=== PATIENT | female | born 1950 | race Hispanic/Latino ===

== ENCOUNTER 2016-12-20 21:52 | Emergency (ER) | payer OTHER, BC ==
[2016-12-20 21:52] VITALS: BMI 32.9
--- NOTE | 2016-12-20 22:11 | ED PDOC ---
Arrival/HPI - General Time Seen by Provider: 12/20/16 21:55 Historian: Patient - History of Present Illness Narrative History of Present Illness (Text): 12/20/16 22:04 66 yo female with h/o CAD (on effient) presents to the ED c/o left nare bleeding that started today. She had some bleeding earlier today and it resolved. Then again just prior to arrival. She tried ice packing and pressure to nose without relief of bleed. She has not changed her dosage of effient or any other medication. She denies headache, visual complaints, weakness, numbness , trauma or any URI symptoms. No history of blood disorders. No h/o nose bleeds. PMD: Dr. Young Past Medical History - Provider Review Nursing Documentation Reviewed: Yes - Psychiatric Hx Substance Use: No - Surgical History Hx Cardiac Catheterization: Yes Hx Coronary Stent: Yes (x2) Family/Social History - Physician Review Nursing Documentation Reviewed: Yes Family/Social History: No Known Family HX Smoking Status: no Hx Alcohol Use: No Hx Substance Use: No Allergies/Home Meds Allergies/Adverse Reactions: Allergies No Known Allergies Allergy (Verified 12/21/16 02:50) Home Medications: Home Meds Medication Instructions Recorded Confirmed Metoprolol Succinate 25 mg PO DAILY 04/20/14 12/21/16 Aspirin [Ecotrin] 81 mg PO DAILY 12/21/16 12/21/16 Cetirizine HCl [Zyrtec Allergy] 10 mg PO DAILY 12/21/16 12/21/16 Prasugrel [Effient] 10 mg PO DAILY 12/21/16 12/21/16 Review of Systems - Review of Systems Constitutional: Normal Eyes: Normal ENT: Epistaxis Respiratory: Normal Cardiovascular: Normal Gastrointestinal: Normal Genitourinary Female: Normal Musculoskeletal: Normal Skin: Normal Neurological: Normal Endocrine: Normal Hemo/Lymphatic: Normal Psychiatric: Normal Physical Exam Vital Signs Reviewed: Yes Vital Signs Temp Pulse Resp BP Pulse Ox 12/21/16 00:42 82 16 98 12/21/16 00:41 98.3 F 99 H 18 132/82 99 12/20/16 21:57 98.1 F 105 H 18 172/98 H 99 Temperature: Afebrile Blood Pressure: Normal Pulse: Tachycardic Respiratory Rate: Normal Appearance: Positive for: Well-Appearing, Non-Toxic, Comfortable Pain Distress: None Mental Status: Positive for: Alert and Oriented X 3 - Systems Exam Head: Present: Atraumatic, Normocephalic Pupils: Present: PERRL Extroacular Muscles: Present: EOMI Conjunctiva: Present: Normal Mouth: Present: Moist Mucous Membranes Pharnyx: Present: Normal. No: ERYTHEMA, EXUDATE Nose (Internal): Present: Epistaxis. No: Septal Hematoma Cardiovascular: Present: Tachycardic Neurological: Present: GCS=15, CN II-XII Intact, Speech Normal, Motor Func Grossly Intact, Normal Sensory Function Skin: Present: Warm, Dry, Normal Color. No: Rashes Psychiatric: Present: Alert, Oriented x 3, Normal Insight, Normal Concentration Medical Decision Making ED Course and Treatment: 12/20/16 22:17 66 yo female with nose bleed -- Pressure was applied with no resolution of bleeding. -- Left anterior/posterior 7.5 rhino rocket applied to left nare and bleeding controlled. 12/20/16 23:23 HR improved to 83. Patient does not feel lightheaded or dizzy. Bleeding has been controlled. Case was discussed with Dr. Brown who is covering ENT services and he can see her in the office tomorrow. He agrees with care and plan. He recommends nasal precautions and augmentin. 12/21/16 23:30 Patients started to have bleeding from right nare despite left nare packing. I placed a 7.5 rhino rocket to right nare without complications. Patient was monitored and the bleeding resolved. Patient does not feel lightheaded or dizzy. Plan is still continue plan for discharge with ENT follow up. - Medication Orders Current Medication Orders: Discontinued Medications Acetaminophen (Tylenol 325mg Tab) 650 mg PO STAT STA Stop: 12/20/16 22:21 Last Admin: 12/21/16 00:41 Dose: Not Given Non-Admin Reason: Patient Refused Amoxicillin/Clavulanate Potassium (Augmentin 875 Mg-125 Mg Tab) 1 tab PO STAT STA PRN Reason: Protocol Stop: 12/20/16 23:19 Last Admin: 12/21/16 00:41 Dose: 1 TAB Disposition/Present on Arrival - Present on Arrival Any Indicators Present on Arrival: No History of DVT/PE: No History of Uncontrolled Diabetes: No Urinary Catheter: No History Surgical Site Infection Following: None - Disposition Have Diagnosis and Disposition been Completed?: Yes Diagnosis: Epistaxis Disposition: HOME/ ROUTINE Disposition Time: 23:30 Patient Plan: Discharge Condition: IMPROVED Discharge Instructions (ExitCare): Nosebleed (ED) Additional Instructions: Ms Kebede thank you for letting us take care of you today. Your provider was Dr. Randolph. You were treated for Epistaxis. The emergency medical care you received today was directed at your acute symptoms. If you were prescribed any medication, please fill it and take as directed. It may take several days for your symptoms to resolve. Return to the Emergency Department if your symptoms worsen, do not improve, or if you have any other problems. Please contact your doctor or call one of the physicians/clinics you have been referred to that are listed on the Patient Visit Information form that is included in your discharge packet. Bring any paperwork you were given at discharge with you along with any medications you are taking to your follow up visit. Our treatment cannot replace ongoing medical care by a primary care provider (PCP) outside of the emergency department. Thank you for allowing the [facility] team to be part of your care today. If you had an X-Ray or CT scan: A Radiologist will review the ED reading if any change in treatment is needed we will contact you. If you had a blood, urine, or wound culture: It will take several days for the results, if any change in treatment is needed we will contact you. If you had an STI test: It will take 48 hours for the results. Please call after 1 week if you have not heard back. Referrals: Willem Brown, [[facility]] - Follow up with primary Forms: WORK NOTE
[2016-12-20] MEDS ORDERED: Amoxicillin-Clav 875-125 mg Tab PO STA (23:18)
[2016-12-21 00:42] VITALS: BP 132/82; PULSE 82; RESP 16; TEMP 98.3; O2SAT 98
== END 2016-12-21 00:42 | disposition home or self-care (01) ==
LOC: ED 21:52
DX: R04.0 Epistaxis (principal); I25.10 Atherosclerotic heart disease of native coronary artery without angina pectoris

== ENCOUNTER 2016-12-21 02:47 | Emergency (ER) | payer OTHER, BC ==
[2016-12-21 02:47] VITALS: BMI 32.9
[2016-12-21 02:57] VITALS: RESP 18
--- NOTE | 2016-12-21 03:19 | ED PDOC ---
Arrival/HPI - General Chief Complaint: ENT Problem Time Seen by Provider: 12/21/16 03:06 Historian: Patient - History of Present Illness Narrative History of Present Illness (Text): 12/21/16 03:20 Nat Kebede is a 66 year old female, with a history of CAD on effient, presents to the emergency department complaining for evaluation of epistaxis. Patient presented to emergency department earlier yesterday night and was discharged home after bleeding was stopped with bilateral nares packing. States that bleeding started again after they reached home. Denies any other complaints. Time/Duration: 4-6 hours Symptom Onset: Gradual Symptom Course: Unchanged Severity Level: Mild Activities at Onset: Light Context: Home Past Medical History - Provider Review Nursing Documentation Reviewed: Yes - Cardiac Hx Hypertension: Yes - Pulmonary Hx Respiratory Disorders: No - Neurological Hx Neurological Disorder: No - HEENT Hx HEENT Disorder: No - Renal Hx Renal Disorder: No - Endocrine/Metabolic Hx Endocrine Disorders: No - Hematological/Oncological Hx Blood Disorders: No - Integumentary Hx Dermatological Disorder: No - Musculoskeletal/Rheumatological Hx Musculoskeletal Disorders: No - Gastrointestinal Hx Gastrointestinal Disorders: No - Genitourinary/Gynecological Hx Genitourinary Disorders: No - Psychiatric Hx Psychophysiologic Disorder: No Hx Substance Use: No - Surgical History Hx Cardiac Catheterization: Yes Hx Coronary Stent: Yes (x2) - Anesthesia Hx Anesthesia: No Family/Social History - Physician Review Nursing Documentation Reviewed: Yes Family/Social History: No Known Family HX Smoking Status: Never Smoked Hx Alcohol Use: No Hx Substance Use: No Allergies/Home Meds Allergies/Adverse Reactions: Allergies No Known Allergies Allergy (Verified 12/21/16 02:50) Home Medications: Home Meds Medication Instructions Recorded Confirmed Metoprolol Succinate 25 mg PO DAILY 04/20/14 12/21/16 Aspirin [Ecotrin] 81 mg PO DAILY 12/21/16 12/21/16 Cetirizine HCl [Zyrtec Allergy] 10 mg PO DAILY 12/21/16 12/21/16 Prasugrel [Effient] 10 mg PO DAILY 12/21/16 12/21/16 Review of Systems - Physician Review All systems were reviewed & negative as marked: Yes - Review of Systems Constitutional: Normal. absent: Fatigue, Fevers ENT: Epistaxis Respiratory: Normal. absent: SOB, Cough, Sputum Cardiovascular: Normal. absent: Chest Pain Gastrointestinal: Normal. absent: Nausea, Vomiting, Appetite Changes Neurological: Normal. absent: Headache, Dizziness Psychiatric: Normal Physical Exam Vital Signs Reviewed: Yes Vital Signs Pulse Resp BP Pulse Ox 12/21/16 05:09 81 18 139/84 95 12/21/16 04:18 75 18 149/91 H 96 12/21/16 02:56 93 H 18 103/52 L 97 Temperature: Afebrile Blood Pressure: Hypotensive Pulse: Regular Respiratory Rate: Normal Appearance: Positive for: Well-Appearing, Non-Toxic, Comfortable Pain Distress: None Mental Status: Positive for: Alert and Oriented X 3 - Systems Exam Head: Present: Atraumatic, Normocephalic Pupils: Present: PERRL Conjunctiva: Present: Normal Nose (Internal): Present: Epistaxis (epistaxis with active bleeding ) Respiratory/Chest: Present: Clear to Auscultation, Good Air Exchange. No: Respiratory Distress, Accessory Muscle Use Cardiovascular: Present: Regular Rate and Rhythm, Normal S1, S2. No: Murmurs Abdomen: Present: Normal Bowel Sounds. No: Tenderness, Distention, Peritoneal Signs Neurological: Present: GCS=15, CN II-XII Intact, Speech Normal, Motor Func Grossly Intact, Normal Sensory Function Skin: Present: Warm, Dry, Normal Color. No: Rashes Psychiatric: Present: Alert, Oriented x 3, Normal Insight, Normal Concentration Medical Decision Making ED Course and Treatment: Progress Notes: Old packing was removed and repacked with bilateral posterior packing. Bleeding persists. 12/21/16 03:17 Case discussed with ENT flowers salesperson, , who said that he will send someone in to evaluate patient. 12/21/16 05:30 ENT resident came to emergency department and evaluated patient. Removed packing from right nare and used Surgiseal to secure the right nare. Bleeding now stopped. Cleared her for discharge and patient to follow up at ENT office on Wednesday. - Lab Interpretations Lab Results: 12/21/16 04:00 12/21/16 04:00 Lab Results 12/21/16 04:00: WBC 8.1, RBC 4.61, Hgb 14.7, Hct 43.5, MCV 94.4, MCH 31.9, MCHC 33.8, RDW 12.9, Plt Count 298, MPV 9.6, Gran % 65.7, Lymph % (Auto) 25.0, Hubbard % (Auto) 7.5 H, Eos % (Auto) 1.2 L, Baso % (Auto) 0.6, Gran # 5.32, Lymph # 2.0 , Hubbard # 0.6, Eos # 0.1, Baso # 0.05, PT 11.0, INR 1.02, APTT 28.2, Sodium 138, Potassium 4.2, Chloride 102, Carbon Dioxide 27, Anion Gap 13, BUN 20, Creatinine 0.7, Est GFR ( Amer) > 60, Est GFR (Non-Af Amer) > 60, Random Glucose 117 H, Calcium 9.3, Total Bilirubin 0.5, AST 26, ALT 36, Alkaline Phosphatase 79, Total Protein 7.7, Albumin 4.0, Globulin 3.7, Albumin/Globulin Ratio 1.1 - Scribe Statement The provider has reviewed the documentation as recorded by the Declan Gay Provider Attestation: All medical record entries made by the Elizabethibronel were at my direction and personally dictated by me. I have reviewed the chart and agree that the record accurately reflects my personal performance of the history, physical exam, medical decision making, and the department course for this patient. I have also personally directed, reviewed, and agree with the discharge instructions and disposition. Disposition/Present on Arrival - Present on Arrival Any Indicators Present on Arrival: No History of DVT/PE: No History of Uncontrolled Diabetes: No Urinary Catheter: No History of Decub. Ulcer: No History Surgical Site Infection Following: None - Disposition Have Diagnosis and Disposition been Completed?: Yes Diagnosis: Epistaxis Disposition: HOME/ ROUTINE Disposition Time: 05:30 Condition: IMPROVED Additional Instructions: Please follow up with the ENT specialist. Return to the ER for any recurrent bleeding or for any other concerns. Referrals: Willem Brown DO [[facility]] - Follow up with primary
[2016-12-21 04:05] LABS: ADD MANUAL DIFF? NO
[2016-12-21 04:25] LABS: ALB/GLOB RATIO 1.1 (1.1-1.8); ALKALINE PHOSPHATASE 79 U/L (38-133); ALT/SGPT 36 U/L (7-56); AST/SGOT 26 U/L (15-39); BILIRUBIN,TOTAL 0.5 mg/dL (0.2-1.3); BLOOD UREA NITROGEN 20 mg/dL (7-21); CALCIUM 9.3 mg/dL (8.4-10.5); CARBON DIOXIDE 27 mmol/L (21-33); CHLORIDE 102 mmol/L (98-107); GFR AFRICAN-AMERICAN > 60; GLUCOSE,RANDOM 117 mg/dL (70-110); POTASSIUM 4.2 mmol/L (3.6-5.0); SODIUM 138 mmol/L (132-148); TOTAL PROTEIN 7.7 g/dL (5.8-8.3)
[2016-12-21 04:27] LABS: INR 1.02 (0.93-1.08); PARTIAL THROMBOPLASTIN TIME 28.2 Seconds (23.7-30.8)
[2016-12-21 04:35] LABS: BASO # 0.05 K/mm3 (0.0-2.0); BASO % 0.6 % (0.0-3.0); EOS # 0.1 (0.0-0.7); EOS % 1.2 % (1.5-5.0); GRAN # 5.32 (1.4-6.5); GRAN % 65.7 % (50.0-68.0); HEMATOCRIT 43.5 % (36.0-48.0); MEAN CELL VOLUME 94.4 fL (80.0-105.0); MEAN CORPUSCULAR HEMOGLOBIN 31.9 pg (25.0-35.0); MEAN CORPUSCULAR HGB CONC 33.8 g/dl (31.0-37.0); MEAN PLATELET VOLUME 9.6 fl (7.0-11.0); MONO # 0.6 (0.1-0.6); MONO % 7.5 % (1.0-6.0); PLATELET COUNT 298 10^3/uL (120.0-450.0); RED CELL DISTRIBUTION WIDTH 12.9 % (11.5-14.5); WHITE BLOOD COUNT 8.1 10^3/ul (4.5-11.0)
[2016-12-21 05:16] VITALS: BP 139/84; PULSE 81; O2SAT 95
--- NOTE | 2016-12-21 08:05 | CON ---
DATE: 12/21/2016 REASON FOR CONSULTATION: Epistaxis. HISTORY OF PRESENT ILLNESS: The patient is a 66-year-old female with a history of coronary artery di sease with stent placement 6 years ago, on Effient and aspirin at home. She states that on the date prior to arrival, she began to have intermittent epistaxis at home. On the evening of 12/20, she had unrelenting epistaxis from the left naris and presented to [facility]. She was subsequen tly packed with Rapid Rhino packing and discharged home. At home, she initially had some just blood- tinged sputum. However, overnight, she began to cough up clots of blood and therefore, represented t o [facility]. The packing was removed and the patient was repacked and ear, nose and thr oat service was consulted for further evaluation. Upon questioning, patient endorses history as abov e. She denies any trauma to the nose. She denies past history of unrelenting epistaxis. She denies any surgeries to the nose and otherwise has no other ear, nose and throat complaints at this time ot her than complaints of pain and congestion related to the bilateral Rapid Rhino packing. PAST MEDICAL HISTORY: Significant for coronary artery disease and hypertension. PAST SURGICAL HISTORY: Denies any ear, nose or throat surgeries in the past. ALLERGIES: No known drug allergies. SOCIAL HISTORY: Denies tobacco abuse. PHYSICAL EXAMINATION: VITAL SIGNS: Blood pressure 103/52, heart rate 93, respiratory rate 18, saturating 97% on room air. GENERAL: The patient is awake and alert. She is oriented x 3. She is in no acute distress. She orta s no stridor, answers questions appropriately, able to speak in full sentences. HEAD: Normocephalic, atraumatic. EARS: External auricles without mass or lesions. NOSE: Rapid Rhino packs in place to both nares, in place inflated with air. Balloon sutured away fr om ala. No active oozing seen around the packings. At this point, the right pack was deflated. No bleeding was noted from the right nasal cavity around the pack. At this point, the pack was gently r emoved and the nasal cavity inspected. No clots or active bleeding was seen within the right nasal c avity. At this point, Surgicel with bacitracin was packed into the right nasal cavity. Again, no bl eeding was noted at the termination of the pack. ORAL CAVITY AND OROPHARYNX: No active bleeding seen in the posterior oropharynx. No clots seen. NECK: Trachea midline. No lymphadenopathy. LABORATORIES: White blood cell count 8.1, hemoglobin 14.7, hematocrit 43.5, platelets 298. PT 11, I NR 1.02, PTT 28.2. ASSESSMENT AND PLAN: The patient is a 66-year-old female, on Effient and aspirin with left-sided epi staxis, now controlled with left Rapid Rhino and right-sided Surgicel. Recommend patient be observed in the ER for another hour for rebleeding. The patient was observed at the bedside for half an hour by myself. The patient was instructed to walk around with packing in p lace and no bleeding was seen. Recommend patient be discharged with antistaphylococcal antibiotics for coverage while packing is in place. Recommend she begin using nasal saline to the right naris to begin to dissolve the Surgicel p acking. Recommend she follow up in the office for left Rapid Rhino removal on Wednesday of this week . This was discussed with the patient and her , and discussed with the Emergency Room eliseo hendrix. Thank you for allowing us to participate in this patient's care. Willem Brown DO cc: [id number] TT: 12/21/2016 08:04:43 Confirmation # [id number] Dictation # [id number]
== END 2016-12-21 05:20 | disposition home or self-care (01) ==
LOC: ED 02:47
DX: R04.0 Epistaxis (principal); I10 Essential (primary) hypertension; I25.10 Atherosclerotic heart disease of native coronary artery without angina pectoris